=== PATIENT | female | born 1960 ===

== ENCOUNTER 2017-11-14 17:16 | Emergency (ER) | payer OTHER ==
[~2017-11-14] VITALS: Ht 162.6 cm; Wt 66.2 kg
[~2017-11-14 17:16] MED LIST: TESSALON PERLE100 MG PO; WELLBUTRIN SR100 MG; ZYRTEC10 MG PO
== END 2017-11-14 20:52 | disposition home or self-care (01) ==
LOC: ER 17:16
DX: R31.0 Gross hematuria (principal); N39.0 Urinary tract infection, site not specified; R10.2 Pelvic and perineal pain

== ENCOUNTER 2018-12-31 10:07 | Outpatient (CLI) | payer OTHER | END 2018-12-31 12:42 | disposition home or self-care (01) | LOC: SONOGRAMA 10:07 | DX: N83.02 Follicular cyst of left ovary (principal); R10.84 Generalized abdominal pain ==

== ENCOUNTER 2018-12-31 10:47 | Outpatient (CLI) | payer OTHER | END 2018-12-31 10:55 | disposition home or self-care (01) | LOC: EKG 10:47 | DX: Z13.6 Encounter for screening for cardiovascular disorders (principal) ==